=== PATIENT | female | born 1950 ===

== ENCOUNTER 2020-09-17 09:53 | Outpatient (REF) | payer MEDICARE, SELFPAY ==
[2020-09-17 10:50] LABS: MANUAL DIFF FLAG NO
[2020-09-17 10:55] LABS: Basophils Percent Auto 0.4 % (0-2); Eosinophils Absolute Auto 0.2 X10*3/uL (0.0-0.4); Eosinophils Percent Auto 3.3 % (0-4); Hematocrit 42.4 % (37-47); Hemoglobin 13.7 g/dl (12.0-16.0); Imm Gran Abs Auto 0.01 X10*3/uL (0.00-0.03); Imm Gran Pct Auto 0.2 % (0.0-0.4); Lymphocytes Absolute Auto 2.2 X10*3/uL (1.2-4.9); Lymphocytes Percent Auto 37.8 % (20-40); Mean Corpuscular HGB Conc 32.3 g/dl (31.0-35.0); Mean Corpuscular Volume 95.9 fL (80-98); Mean Platelet Volume 11.6 fL (9.4-12.3); Monocytes Absolute Auto 0.6 X10*3/uL (0.1-1.2); Monocytes Percent Auto 10.5 % (2-11); Neutrophils Absolute Auto 2.7 X10*3/uL (2.0-8.3); Neutrophils Percent Auto 47.8 % (45-73); Platelet Count 252 X10*3/uL (160-400); Red Blood Count 4.42 X10*6/uL (4.20-5.50); Red Cell Distribution Width 12.5 % (11.0-16.0); White Blood Count 5.7 X10*3/uL (4.8-10.8)
[2020-09-17 11:22] LABS: Anion Gap 11 (12-20); Blood Urea Nitrogen 24 mg/dL (9-16); Calcium 10.2 mg/dL (8.4-10.2); Carbon Dioxide 31 mmol/L (22-29); Chloride 102 mmol/L (96-108); Cholesterol 233 mg/dL; Estimated Glomerular Filt Rate > 60; Glucose Fasting 103 mg/dL (60-99); HDL Cholesterol 65 mg/dL; LDL Cholesterol Calculated 150 mg/dl; Sodium 140 mmol/L (135-145); Triglycerides 92 mg/dL
== END 2020-09-17 09:54 | disposition home or self-care (01) ==
LOC: HO.LAB 09:53
PROVIDERS: PCP Nurse Practitioner Family; Visit Provider Nurse Practitioner Family
DX: I10 Essential (primary) hypertension (principal); Z12.31 Encounter for screening mammogram for malignant neoplasm of breast
CPT/HCPCS: 36415; 80048; 80061; 85025

== ENCOUNTER 2020-12-05 12:20 | Outpatient (REF) | payer MEDICARE, MEDICAID, SELFPAY ==
--- NOTE | ~2020-12-05 | MM_ITS ---
EXAMINATION: MM SCREENING DIGITAL BREAST TOMOSYNTHESIS, BILATERAL CLINICAL INFORMATION: Screening. Asymptomatic. Prior outside mammography from [place] at unknown facility and unavailable. No family history breast cancer. The lifetime risk of breast cancer based on the Tyrer-Cuzick Model is 3%. COMPARISON: None. TECHNIQUE: Digital breast tomosynthesis is performed in both the craniocaudal and mediolateral oblique views along with computer-aided detection (CAD). Synthesized 2D images are generated from the tomosynthesis. FINDINGS: There are scattered areas of fibroglandular density (ACR BI-RADS breast composition Category b). There is fine fibronodular parenchymal pattern. There is no significant mass or architectural abnormality. No abnormal calcifications. The skin contours are smooth. MM/MM tomosynthesis screening BI IMPRESSION: No mammographic evidence of malignancy. ASSESSMENT: BI-RADS 1: Negative RECOMMENDATION: Routine annual mammography screening. This patient's information was entered into a reminder system with a target due date for their next mammogram.
== END 2020-12-05 12:21 | disposition home or self-care (01) ==
LOC: HO.MAMMO 12:20
PROVIDERS: Visit Provider Nurse Practitioner Family
DX: Z12.31 Encounter for screening mammogram for malignant neoplasm of breast (principal)
CPT/HCPCS: 77063; 77067

== ENCOUNTER 2022-01-12 13:28 | Outpatient (REF) | payer MEDICARE, MEDICAID, SELFPAY ==
--- NOTE | ~2022-01-12 | MM_ITS ---
EXAMINATION: MM SCREENING DIGITAL BREAST TOMOSYNTHESIS, BILATERAL CLINICAL INFORMATION: Screening. Asymptomatic. The lifetime risk of breast cancer based on the Tyrer-Cuzick Model is 2.2%. COMPARISON: Mammography: December 05, 2020 TECHNIQUE: Digital breast tomosynthesis is performed in both the craniocaudal and mediolateral oblique views along with computer-aided detection (CAD). Synthesized 2D images are generated from the tomosynthesis. FINDINGS: The breasts are heterogeneously dense, which may obscure small masses (ACR BI-RADS breast composition Category c). There are no significant masses, abnormal calcifications, or other abnormalities. MM/MM tomosynthesis screening BI IMPRESSION: There are no significant changes from prior study. ASSESSMENT: BI-RADS 1: Negative RECOMMENDATION: Routine annual mammography screening. This patient's information was entered into a reminder system with a target due date for their next mammogram.
== END 2022-01-12 13:29 | disposition home or self-care (01) ==
LOC: HO.MAMMO 13:28
PROVIDERS: PCP Internal Medicine; Visit Provider Internal Medicine
DX: Z12.31 Encounter for screening mammogram for malignant neoplasm of breast (principal)
CPT/HCPCS: 77063; 77067

== ENCOUNTER 2023-01-18 12:24 | Outpatient (REF) | payer MEDICARE, MEDICAID, SELFPAY ==
--- NOTE | ~2023-01-18 | MM_ITS ---
EXAMINATION: MM SCREENING DIGITAL BREAST TOMOSYNTHESIS, BILATERAL CLINICAL INFORMATION: Screening. Asymptomatic. The lifetime risk of breast cancer based on the Tyrer-Cuzick Model is 1.8%. COMPARISON: Mammography: January 12, 2022 and December 05, 2020 TECHNIQUE: Digital breast tomosynthesis is performed in both the craniocaudal and mediolateral oblique views along with computer-aided detection (CAD). Synthesized 2D images are generated from the tomosynthesis. FINDINGS: The breasts are heterogeneously dense, which may obscure small masses (ACR BI-RADS breast composition Category c). There are no significant masses, abnormal calcifications, or other abnormalities. MM/MM tomosynthesis screening BI IMPRESSION: No significant changes from prior exam. ASSESSMENT: BI-RADS 1: Negative RECOMMENDATION: Routine annual mammography screening. This patient's information was entered into a reminder system with a target due date for their next mammogram.
== END 2023-01-18 12:25 | disposition home or self-care (01) ==
LOC: HO.MAMMO 12:24
PROVIDERS: PCP Internal Medicine; Visit Provider Internal Medicine
DX: Z12.31 Encounter for screening mammogram for malignant neoplasm of breast (principal)
CPT/HCPCS: 77063; 77067

== ENCOUNTER 2023-07-29 08:21 | Outpatient (REF) | payer MEDICARE, MEDICAID, SELFPAY | END 2023-07-29 08:22 | disposition home or self-care (01) | LOC: HO.HHCL 08:21 | PROVIDERS: Visit Provider Internal Medicine | DX: E78.00 Pure hypercholesterolemia, unspecified (principal) | CPT/HCPCS: 36415; 80061; 80076 ==

== ENCOUNTER 2023-08-11 18:10 | Outpatient (REF) | payer MEDICARE, MEDICAID, SELFPAY ==
[2023-08-12 08:56] LABS: CT PCR NOT DETECTED (Not Detect.); NG PCR NOT DETECTED (Not Detect.)
[2023-08-12 11:14] LABS: BV Int Neg Control Negative (Negative); BV Int Pos Control Positive (Positive)
== END 2023-08-11 18:11 | disposition home or self-care (01) ==
LOC: HO.HHCLNP 18:10
PROVIDERS: Visit Provider Family Medicine
DX: N39.0 Urinary tract infection, site not specified (principal); Z20.2 Contact with and (suspected) exposure to infections with a predominantly sexual mode of transmission
CPT/HCPCS: 0353U; 87086; 87088; 87186; 87480; 87510; 87660

== ENCOUNTER 2023-10-11 17:47 | Outpatient (REF) | payer MEDICARE, MEDICAID, SELFPAY ==
[2023-10-12 21:52] LABS: C. trachomatis RNA TMA NOT DETECTED (NOT DETECTED); N. gonorrhoeae RNA TMA NOT DETECTED (NOT DETECTED)
== END 2023-10-11 17:48 | disposition home or self-care (01) ==
LOC: HO.HHCLNP 17:47
PROVIDERS: Visit Provider Emergency Medicine
DX: R30.0 Dysuria (principal)
CPT/HCPCS: 36415; 81513; 87086; 87491; 87591

== ENCOUNTER 2024-02-20 09:26 | Outpatient (REF) | payer OTHER, SELFPAY | END 2024-02-20 09:27 | disposition home or self-care (01) | LOC: HO.MAMMO 09:26 | PROVIDERS: PCP Internal Medicine; Visit Provider Internal Medicine | DX: Z12.31 Encounter for screening mammogram for malignant neoplasm of breast (principal) | CPT/HCPCS: 77063; 77067 ==

== ENCOUNTER → 2024-02-20 10:45 | Outpatient (BNV) | payer OTHER, SELFPAY | PROVIDERS: PCP Internal Medicine; Visit Provider Radiology Diagnostic Radiology | DX: Z12.31 Encounter for screening mammogram for malignant neoplasm of breast (principal) | CPT/HCPCS: 77063; 77067 ==

== ENCOUNTER 2024-05-09 09:55 | Outpatient (REF) | payer OTHER, SELFPAY ==
[2024-05-09 12:24] LABS: Cholesterol 222 mg/dL (<200); HDL Cholesterol 65 mg/dL (>40); LDL Cholesterol Calculated 139 mg/dL (<100); Triglycerides 93 mg/dL (<150); Vitamin D 25-OH Total 45.7 ng/mL (>30)
[2024-05-09 13:49] LABS: Reflex LDLD? No
== END 2024-05-09 09:56 | disposition home or self-care (01) ==
LOC: HO.HHCL 09:55
PROVIDERS: Visit Provider Internal Medicine
DX: E78.00 Pure hypercholesterolemia, unspecified (principal)
CPT/HCPCS: 36415; 80061; 82306

== ENCOUNTER 2024-06-11 09:02 | Emergency (ER) | payer OTHER, SELFPAY ==
--- NOTE | ~2024-06-11 | XR_ITS ---
EXAMINATION: XR RIGHT KNEE, PELVIS AND RIGHT HIP CLINICAL INFORMATION: Fall, pain right knee and hip. COMPARISON: None available. TECHNIQUE: AP view of the pelvis, 2 views right hip, 4 views right knee. FINDINGS: AP Pelvis and Right Hip: Degenerative changes in the imaged lower lumbar spine. Multiple rounded pelvic calcifications are likely vascular. Diffuse demineralization. Moderate degenerative changes in the right hip with joint space narrowing and hypertrophic change. Moderate degenerative changes on single AP view of the left hip. Right Knee: Diffuse demineralization. Trace joint effusion. Mild narrowing of the medial compartment with mild marginal osteophytes. XR/XR hip RT min 2V IMPRESSION: 1. Moderate degenerative changes in the right hip. 2. Mild degenerative changes right knee. 3. Diffuse demineralization. Additional imaging with CT scan or MRI should be considered if there is concern for fracture or other underlying pathology for this patient with history of trauma. This study was presented today June 11, 2024 for interpretation. Stat results provided at this time as requested by referring provider.
--- NOTE | ~2024-06-11 | XR_ITS ---
EXAMINATION: XR RIGHT KNEE, PELVIS AND RIGHT HIP CLINICAL INFORMATION: Fall, pain right knee and hip. COMPARISON: None available. TECHNIQUE: AP view of the pelvis, 2 views right hip, 4 views right knee. FINDINGS: AP Pelvis and Right Hip: Degenerative changes in the imaged lower lumbar spine. Multiple rounded pelvic calcifications are likely vascular. Diffuse demineralization. Moderate degenerative changes in the right hip with joint space narrowing and hypertrophic change. Moderate degenerative changes on single AP view of the left hip. Right Knee: Diffuse demineralization. Trace joint effusion. Mild narrowing of the medial compartment with mild marginal osteophytes. XR/XR knee RT 4V IMPRESSION: 1. Moderate degenerative changes in the right hip. 2. Mild degenerative changes right knee. 3. Diffuse demineralization. Additional imaging with CT scan or MRI should be considered if there is concern for fracture or other underlying pathology for this patient with history of trauma. This study was presented today June 11, 2024 for interpretation. Stat results provided at this time as requested by referring provider.
[2024-06-11 09:12] VITALS: BP 172/67; PULSE 89; RESP 16; TEMP 36.9; O2SAT 98; BMI 21.6
--- NOTE | 2024-06-11 09:16 | ECG_ITS ---
Test Reason : DIZZINESS Blood Pressure : / mmHG Vent. Rate : 094 BPM Atrial Rate : 094 BPM P-R Int : 144 ms QRS Dur : 076 ms QT Int : 336 ms P-R-T Axes : 046 030 060 degrees QTc Int : 420 ms Normal sinus rhythm Normal ECG No previous ECGs available Referred By: Generic ED Physician Electronically Signed By:AJAY WILBURN
[2024-06-11 09:34] LABS: MANUAL DIFF FLAG NO
[2024-06-11 09:35] LABS: Basophils Percent Auto 0.4 % (0-2); Eosinophils Absolute Auto 0.1 X10*3/uL (0.0-0.4); Hematocrit 41.4 % (37.0-47.0); Imm Gran Abs Auto 0.02 X10*3/uL (0.00-0.03); Imm Gran Pct Auto 0.3 % (0.0-0.4); Lymphocytes Absolute Auto 1.7 X10*3/uL (1.2-4.9); Mean Corpuscular HGB Conc 33.8 g/dl (31.0-35.0); Mean Corpuscular Volume 94.7 fL (80.0-98.0); Mean Platelet Volume 10.6 fL (9.4-12.3); Monocytes Absolute Auto 0.7 X10*3/uL (0.1-1.2); Monocytes Percent Auto 10.5 % (2-11); Neutrophils Absolute Auto 4.2 x10*3/uL (2.0-8.3); Neutrophils Percent Auto 62.8 % (45-73); Platelet Count 235 X10*3/uL (160-400); Red Blood Count 4.37 X10*6/uL (4.20-5.50); Red Cell Distribution Width 12.8 % (11.0-16.0); White Blood Count 6.7 X10*3/uL (4.8-10.8)
[2024-06-11 09:51] LABS: Anion Gap 11 (12-20); Blood Urea Nitrogen 20 mg/dL (9-16); Calcium 10.2 mg/dL (8.4-10.2); Carbon Dioxide 27 mmol/L (22-29); Chloride 108 mmol/L (96-108); Creatinine Clr Calc Pharmacy 40.4; Estimated Glomerular Filt Rate 56; Glucose Random 152 mg/dL (60-115); Potassium 3.6 mmol/L (3.3-5.1); Sodium 142 mmol/L (135-145)
[2024-06-11 11:50] VITALS: BP 169/73; PULSE 78; RESP 18; TEMP 36.7; O2SAT 100
[2024-06-11 11:55] LABS: Appearance Urine Cloudy; Color Urine Yellow; Glucose Urine UA Negative (Negative); Leukocyte Esterase Urine Large (3+) (Negative); Nitrite Urine Negative (Negative); PH 6.5 (5.0-9.0); Specific Gravity - Urine 1.015 (1.005-1.025); UMIC TRIGGER UACC YES; Urine Blood Trace (Negative); Urine Ketones Negative (Negative); Urine Protein Negative (Neg-Trace)
[2024-06-11 12:00] VITALS: BP 170/74; PULSE 80; RESP 18; TEMP 36.8; O2SAT 97
[2024-06-11 12:04] LABS: Bacteria Urine 1+ (None Seen); Hyaline Casts Urine 0-2 /LPF (0-2); RBC Urine 0-2 /HPF (0-2); UACC Culture Trigger YES; WBC Urine 21-50 /HPF (0-5)
--- NOTE | 2024-06-11 12:12 | ED.FALL ---
HPI - Fall General Chief Complaint: Fall Stated Complaint: R side pain Time Seen by Provider: 06/11/24 11:15 Source: patient, family (daughter) and wet pour supervisor Mode of arrival: ambulatory Limitations: language barrier History of Present Illness ED Provider: saul GARNER Narrative: Patient is a 74-year-old [place]er speaking female with history of HTN, high cholesterol, depression presenting to the emergency department with complaint of right hip pain radiating to right knee and proximal lower leg after a fall at home last night. Patient's daughter states that she was visiting the patient last night and patient reported feeling hot, so was going to take a shower to cool off. Daughter then went home. This morning, patient reported to her daughter that she slipped getting into the shower last night and fell. Patient and daughter report history of dizziness/feeling unsteady. Patient denies head strike or loss of consciousness. She is not anticoagulated. She denies current headache, neck or back pain. Denies blurred vision, double vision or other visual changes. Denies hematuria. Denies chest pain, palpitations, or dyspnea at the time of fall. Has been able to ambulate since. MD complaint: fall Onset (ago): hour(s) Fall from: standing Fall witnessed: no Place fall occurred: home Loss of consciousness: none Prolonged down time: no Symptoms prior to fall: dizziness Context: tripped/slipped Location of injury: pelvis Quality: aching Related Data Previous Rx's ?Medication ?Instructions ?Recorded gabapentin 300 mg capsule 300 mg PO BEDTIME 30 days #30 caps 11/20/20 lisinopril 20 mg tablet 20 mg PO DAILY 3 months #90 tabs 11/20/20 omeprazole 20 mg capsule,delayed 20 mg PO DAILY #90 caps 11/20/20 release simvastatin 20 mg tablet 20 mg PO BEDTIME 3 months #90 tabs 11/20/20 blood pressure test kit-large #1 ea 11/27/20 ([facility] Blood Pressure Monitor kit) cefuroxime axetil 250 mg tablet 250 mg PO BID #14 tabs 06/11/24 lidocaine 5 % topical patch 1 patch topical DAILY #15 ea 06/11/24 tramadol 50 mg tablet 50 mg PO Q8H PRN severe pain 06/11/24 (scale score 7-10) #9 tabs Allergies Allergy/AdvReac Type Severity Reaction Status Date / Time No Known Allergies Allergy Verified 06/11/24 09:16 Review of Systems Review of Systems: As per HPI. Yes all other systems are reviewed and are negative Constitutional: Constitutional: Reports as per HPI [facility] Past Medical History Medical History (Updated 06/11/24 @ 13:22 by Antonieta Ellison NP) High cholesterol Breast cancer screening by mammogram Depression High blood cholesterol Hypertension Surgical History (Updated 11/20/20 @ 10:16 by BASSAM Ybarra) No history of previous surgery Family History Family History (Updated 11/20/20 @ 10:16 by BASSAM Ybarra) Mother No problems noted. Father No problems noted. Social History Social History (Updated 11/20/20 @ 10:16 by BASSAM Ybarra) Alcohol intake: never Advance Directives: No Advance Directives Information Provided: Yes Physical Exam Vital Signs: Vital Signs: Last Vital Signs Temp 98.3 F 06/11/24 12:00 Pulse 84 06/11/24 12:44 Resp 18 06/11/24 12:00 BP 170/82 H 06/11/24 12:44 Pulse Ox 97 06/11/24 12:00 O2 Del Method Room Air 06/11/24 12:00 BMI result Body Mass Index 21.6 Vital signs have been reviewed and appear to be correct. Blood pressure elevated. Heart rate normal. Respiratory rate normal. Temperature normal. Oxygen saturation normal. Const: General: cooperative, healthy appearing and no acute distress Orientation/consciousness: oriented to person, oriented to place, oriented to time and patient oriented x3 Limitations: no limitations HEENT: Head: Yes No palpable skull fracture present, Yes normocephalic, Yes atraumatic, No raccoon eyes and No periorbital ecchymosis Ears: external ears normal, TM's normal bilaterally and EAC's normal General nose exam: Normal external nose present Face and sinus: Yes face symmetric Mouth: oropharynx normal and moist mucous membranes Throat: Yes uvula midline Eyes: Pupils: Equal, round and reactive pupils present EOM: EOMs intact bilaterally and No Nystagmus present Neck: Neck: Yes normal visual inspection, Yes no meningeal signs and Yes supple Chest: Chest palpation & inspection: normal inspection of the chest and normal palpation of entire chest wall Resp: Effort & Inspection: normal respiratory effort and able to speak in complete sentences Auscultation: clear to auscultation bilaterally Cardio: Rate: regular rate Rhythm: regular rhythm Heart sounds: S1 normal heart sound present and S2 normal heart sound present GI: Palpation (GI): Soft to palpation and nontender Auscultation: normoactive bowel sounds : General: Yes no CVA tenderness Back/Spine/Pelvis: Back: no CVA tenderness Cervical Spine: normal cervical lordosis, cervical ROM normal, No cervical muscular tenderness, No Cervical spine tenderness and No step off deformity Thoracic/Lumbar Spine: thoracic and lumbar spine normal to inspection, thoraco-lumbar ROM normal, No thoracic spinal tenderness and No lumbar spinal tenderness Pelvis: no pain with anterior-posterior compression and no pain with lateral compression Skin: General skin exam: elasticity normal and turgor normal Neuro: General: oriented to person, oriented to place, oriented to time, patient oriented x3, tone normal, moves all extremities, Normal light touch and pain sensation, no meningeal signs, no focal motor deficits, CN's II-XI intact bilaterally and deep tendon reflexes 2+ bilaterally Cranial nerves: Yes Equal, round and reactive pupils present and No Nystagmus present Cognition (Neuro): normal cognition Motor exam (neuro): 5/5 motor strength present throughout, Pronator motor function not present, no tremor noted, no asterixis, Motor fasciculations not present, Normal motor muscle tone present throughout and Motor abnormalities not present Extrem: General: Yes full ROM, Yes no pedal edema and Yes no calf tenderness Right lower extremity: hip/thigh Details: tenderness Location: of the hip Location: laterally and normal ROM, knee Details: tenderness Location: of the distal upper leg Details: anteriorly, normal ROM and knee ligament exam normal, lower leg Details: normal to inspection; no tenderness, ankle Details: normal to inspection; no tenderness and foot Details: normal capillary refill, normal to inspection and vascular exam Details: dorsalis pedis pulse present and posterior tibial pulse present Psych: Mental Status: mental status grossly normal Affect: normal affect Thought process: Normal thought process present Medical Decision Making Medical Decision Making MDM Narrative: Patient is a 74-year-old [place] speaking female with history of HTN, high cholesterol, depression presenting to the emergency department with complaint of right hip pain radiating to right knee and proximal lower leg after a fall at home last night. On exam patient is awake, A+Ox3, BP elevated, VS otherwise WNL, afebrile, normal neurological exam without focal deficits, physical exam findings as above. Given reported symptoms and physical exam findings, initial differential includes right hip contusion versus fracture, right knee contusion versus fracture, anemia, electrolyte abnormality, dehydration, orthostatic intolerance, cardiac arrhythmia. Labs unremarkable. X-rays or right hip and knee notable for moderate degenerative changes but no acute fractures. My interpretation is in agreement with the radiologist's interpretation. Urinalysis notable for 3+ leukocytes, 21-50 WBCs, 11-20 epithelials. Possibly contamination, but given patient's report of feeling unsteady which lead to her fall, will treat for UTI at this time. Will prescribe a few Tramadol for severe pain as daughter states patient will be staying with her for the next few days. Discussed with patient and daughter that she should not take the Tramadol if she is home alone as it can increase her risk for falls. Results discussed with patient and all questions answered. Instructed patient to follow-up with PCP. Return precautions discussed at bedside. Patient verbalized understanding of and agreement with plan. Assessment, results, return precautions and plan discussed with in-person furnace checker at bedside. Differential Diagnosis Differential Diagnoses: The differential diagnosis associated with the presentation includes As per [facility] Admission/Observation Consideration of admission/observation: Escalation of care including admission/observation considered Patient would have been admitted to the hospital had their work up had any findings where hospital admission was appropriate and their clinical presentation warranted hospital admission. Lab Data [facility] Lab Attestation statement: I reviewed the patient's lab results. As per [facility] 06/11/24 09:27 06/11/24 09:27 Labs: Lab Results 06/11/24 06/11/24 Range/Units 09:27 11:48 WBC 6.7 (4.8-10.8) X10*3/uL RBC 4.37 (4.20-5.50) X10*6/uL Hgb 14.0 (12.0-16.0) g/dl Hct 41.4 (37.0-47.0) % MCV 94.7 (80.0-98.0) fL MCH 32.0 (27.0-33.0) pg MCHC 33.8 (31.0-35.0) g/dl RDW 12.8 (11.0-16.0) % Plt Count 235 (160-400) X10*3/uL MPV 10.6 (9.4-12.3) fL Immature Gran % (Auto) 0.3 (0.0-0.4) % Neut % (Auto) 62.8 (45-73) % Lymph % (Auto) 25.0 (20-40) % Iz[place] % (Auto) 10.5 (2-11) % Eos % (Auto) 1.0 (0-4) % Baso % (Auto) 0.4 (0-2) % Lymph # (Auto) 1.7 (1.2-4.9) X10*3/uL [place] # (Auto) 0.7 (0.1-1.2) X10*3/uL Eos # (Auto) 0.1 (0.0-0.4) X10*3/uL Baso # (Auto) 0.0 (0.0-0.2) X10*3/uL Abs Immat Gran (auto) 0.02 (0.00-0.03) X10*3/uL Absolute Neuts (auto) 4.2 (2.0-8.3) x10*3/uL Absolute Nucleated RBC 0.000 (0.0-0.012) X10*3/uL Nucleated RBC % (auto) 0.0 (0.0-0.2) /100WBC Sodium 142 (135-145) mmol/L Potassium 3.6 (3.3-5.1) mmol/L Chloride 108 (96-108) mmol/L Carbon Dioxide 27 (22-29) mmol/L Anion Gap 11 L (12-20) BUN 20 H (9-16) mg/dL Creatinine 0.98 (0.5-1.4) mg/dL Estim Creat Clear Calc 40.4 Estimated GFR 56 Random Glucose 152 H (60-115) mg/dL Calcium 10.2 (8.4-10.2) mg/dL Urine Color Yellow Urine Appearance Cloudy Urine pH 6.5 (5.0-9.0) Ur Specific [place] 1.015 (1.005-1.025) Urine Protein Negative (Neg-Trace) mg/dL Urine Glucose (UA) Negative (Negative) mg/dL Urine Ketones Negative (Negative) mg/dL Urine Blood Trace H (Negative) Urine Nitrite Negative (Negative) Ur Leukocyte Esterase Large (3+) H (Negative) Urine RBC 0-2 (0-2) /HPF Urine WBC 21-50 H (0-5) /HPF Ur Squamous Epith Cells 11-20 (0-2) /HPF Urine Bacteria 1+ (None Seen) Hyaline Casts 0-2 (0-2) /LPF Independent Interpretation I performed an independent interpretation of an: Plain X-Ray Interpretation: X-rays or right hip and knee notable for moderate degenerative changes but no acute fractures. Radiology Impression Discussion of test interpretation with radiology: I have reviewed the radiologist's reading. Radiologist Impression: XR/XR hip RT min 2V IMPRESSION: 1. Moderate degenerative changes in the right hip. 2. Mild degenerative changes right knee. 3. Diffuse demineralization. Additional imaging with CT scan or MRI should be considered if there is concern for fracture or other underlying pathology for this patient with history of trauma. Independent Historian Clinical information obtained from an independent historian. History obtained from or confirmed by: Other (daughter) External Record Review External record reviewed: Inpatient record, Office record and Outpatient record Prescription Management I considered prescription management with: Antibiotic Discharge Plan Discharge Clinical Impression: Contusion of hip, right, Fall, Urinary tract infection Patient Disposition: Home, Self-Care Instructions: Urinary Tract Infection in Women (DC), Contusion in Adults (ED), Fall Prevention (ED), Hip Contusion (ED) Additional Instructions: You were evaluated in the emergency department today for injuries sustained after a fall. Your x-rays did not show evidence of any acute fractures. Your urinalysis showed evidence of infection and you are being treated with antibiotics. Please complete the full course as prescribed. You are being prescribed topical lidocaine patches which you can wear for up to 12 hours in a 24 hour period. Do not apply heat directly over the patches. We recommend that you take 650mg of Tylenol or 600mg ibuprofen every 6 hours as needed for pain. You are being prescribed Tramadol for severe pain, do not take this if you are home alone, as it can increase your risk for falls. Follow up with your primary care provider. Return to the emergency department with new or worsening symptoms. Prescriptions: New lidocaine 5 % adhesive patch,medicated 1 patch topical DAILY Qty: 15 0RF Rx Instructions: leave on most painful area for up to 12 hrs cefuroxime axetil 250 mg tablet 250 mg PO BID Qty: 14 0RF tramadol 50 mg tablet 50 mg PO Q8H PRN (Reason: severe pain (scale score 7-10)) Qty: 9 0RF No Action omeprazole 20 mg capsule,delayed release(DR/EC) 20 mg PO DAILY Qty: 90 0RF (DME) blood pressure test kit-large [[facility] Blood Pressure Monitr] Kit See Rx Instructions .ROUTE .MEDSUPPLY Qty: 1 0RF Rx Instructions: As directed gabapentin 300 mg capsule 300 mg PO BEDTIME 30 Days Qty: 30 0RF lisinopril 20 mg tablet 20 mg PO DAILY 90 Days Qty: 90 0RF simvastatin 20 mg tablet 20 mg PO BEDTIME 90 Days Qty: 90 0RF Print Language: [place]
[2024-06-11 12:44] VITALS: BP 156/78; BP 170/76; BP 170/82; PULSE 78; PULSE 84; PULSE 85
[2024-06-11] MEDS: traMADoL HCL 50 MG TABLET PO (14:44)
[2024-06-11 14:48] VITALS: BP 156/76; PULSE 88; RESP 18; TEMP 36.8; O2SAT 98
== END 2024-06-11 14:49 | disposition home or self-care (01) ==
PROVIDERS: Emergency Provider Emergency Medicine; PCP Internal Medicine
DX: S70.01XA Contusion of right hip, initial encounter (principal); W18.2XXA Fall in (into) shower or empty bathtub, initial encounter; N39.0 Urinary tract infection, site not specified; I10 Essential (primary) hypertension; E78.00 Pure hypercholesterolemia, unspecified; Y93.E1 Activity, personal bathing and showering; Y92.012 Bathroom of single-family (private) house as the place of occurrence of the external cause; Y99.9 Unspecified external cause status
CPT/HCPCS: 36415; 73502; 73564; 80048; 81001; 85025; 87086; 87147; 93005; 99283; 99285

== ENCOUNTER 2025-02-19 08:41 | Outpatient (REF) | payer OTHER, SELFPAY ==
--- OUTSIDE RECORDS SUMMARY | 2025-02-19 09:06 | XMS_ITS | Encounter Summary ---
Author Organization [employer] Address [address] [place] [address] Care Team Providers Care Optometry Professor Name Role Phone Kourtney Cano MD Primary Care Provider + Encounter Details Date Type Department Care Team (Latest Contact Info) Description 02/05/[address] [facility] CONVERSIONS Dental, Provider, DDS Social History Tobacco Use Types Packs/Day Years Used Date Smoking Tobacco: Never Assessed Comments Unknown Sex and Gender Information Value Date Recorded Sex Assigned at Female 08/23/2022 10:37 AM EDT Legal Sex Female 10:37 AM EDT Gender Identity Female 08/23/2022 10:37 AM EDT Sexual Orientation Straight 08/23/2022 10 :37 AM EDT documented as of this encounter Plan of Treatment Upcoming Encounters Date Type Department Care Team (Late st Contact Info) Description 04/10/2025 9:00 AM EDT Office Visit [facility] MEDICINE [address] [place] [address] Kourtney Cano MD [address] [place] [address] documented as of this encounter Visit Diagnoses Not on filedocumented in this encounter Care Teams Optometry Professor Relationship Specialty Start Date End Date Kourtney Cano MD [address] [place], [place] [phone] PCP - General Family Medicine 02/11/21 documented as of this encounter
--- OUTSIDE RECORDS SUMMARY | 2025-02-19 09:06 | XMS_ITS | Encounter Summary ---
Author Organization [employer] Address [address] [place] [address] Care Team Providers Care Pot Builder Name Role Phone Kourtney Cano MD Primary Care Provider + Reason for Visit * Reason Onset Date Comments Durable Medical Equipment 02/12/2025 Home C are Delivered Form: Incontinence Supplies Encounter Details Date Type Department Care Team ([facility] Contact Info) Description 02/12/2025 Telephone [facility] MEDICINE [address] [place], [place] [phone] Kourtney Cano MD [address] [place], [place] [phone] Durable Medical Equipment (Home Care Delivered Form: Incontinence Supplies) Social History Tobacco Use Types Packs/Day Years Used Date Smoking Tobacco: Never Smokeless Tobacco: Never Alcohol Use Standard Drinks/Week Comments Never 0 (1 standard drink = 0.6 oz pur e alcohol) PHQ-2 Answer Date Recorded Patient Health Questionnaire-2 Score 0 12/16/2022 Housing Stability Answer Date Recorded What is your housing situation today? I have margarita ramirez 01/27/[address] you li ve. Do you have problems with any of the following? None of the above 01/27/2024 Food Insecurity Answer Date Recorded Within the past 12 months, y ou worried that your food would run out before you got money to buy more: Never True 01/27/2024 Within the past 12 months,th e food you bought just didn't last and you didn't have enough money to get more: Never True 02/2024 Transportation Answer Date Recorded In the past 12 months, has l ack of transportation kept you from medical appts, meetings, work or from getting things needed for daily living? No 01/27/2024 Utilities Answer Date Recorded In the past 12 months, has t he electric, gas, oil or water company threatened to shut off services in your home? No 01/27/2024 Depression Answer Date Recorded Patient Health Questionnaire-2 Score 0 01/27/2024 Comments No Sex and Gender Information Value Date Recorded Sex Assigned at Female 08/23/2022 10:37 AM EDT Legal Sex Female 10:37 AM EDT Gender Identity Female 08/23/2022 10:37 AM EDT Sexual Orientation Straight 08/23/2022 10 :37 AM EDT documented as of this encounter Miscellaneous Notes * Telephone Encounter - Bhargavi Blanchard - 02/15/2025 3:58 PM EDT Confirmation of order for incontinence supplies signed and faxed to [facility] . Confirmation received and sent to scan. If patient calls to check status on above, please advise them to contact [facility] at [phone]. * Telephone Encounter - Bhargavi Blanchard - 02/12/2025 11:28 AM EDT General prescription form for incontinence supplies from [facility] placed on PCP desk for signature. documented in this encounter Plan of Treatment Upcoming Encounters Date Type Department Care Team (Late st Contact Info) Description 04/10/2025 9:00 AM EDT Office Visit [facility] MEDICINE [address] [place] [address] Kourtney Cano MD [address] [place] [address] documented as of this encounter Visit Diagnoses Not on filedocumented in this encounter Care Teams Pot Builder Relationship Specialty Start Date End Date Kourtney Cano MD [address] [place] [phone] PCP - General Family Medicine 02/11/21 documented as of this encounter
--- OUTSIDE RECORDS SUMMARY | 2025-02-19 09:06 | XMS_ITS | Clinical Summary ---
Author Organization [employer] Address [address] [facility] 7[address] [place] [address] Care Team Providers Care Jig Borer Name Role Phone Kourtney Cano MD Primary Care Provider + Allergies No known active allergies Medications acetaminophen (Tylenol) 500 MG tablet Take 1 tablet (500 mg) by mouth every 8 (eight) hours if needed for mild pain. 270 tablet 01/02/20 25 026 Active ammonium lactate (Amlactin) 12 % creamIndications:Overflo w incontinence of urine USO MARIO INDICADO EN-PIEL RESECA NEEDED 385 g 01/02/20 25 Active calcium carbonate EX (Tums Smoothies) 750 MG chewable tabletIndications:Gastro esophageal reflux disease, unspecified whether esophagitis present 1 tab po tid ac meals prn abd pain 90 tablet 11 01/02/20 25 Active ezetimibe (Zetia) 10 MG tablet Take 1 tablet (10 mg) by mouth in the morning. 90 tablet 1 01/02/20 25 Active lisinopril 20 MG tabletIndications:Benign hypertension TAKE 1 TABLET BY MOUTH EVERY DAY 90 tablet 1 01/02/20 25 Active omeprazole (PriLOSEC) [address] capsuleIndications:Gastr oesophageal reflux disease, unspecified whether esophagitis present TAKE 1 CAPSULE BY MOUTH DAILY BEFORE A MEAL 90 capsule 1 01/02/20 25 Active rosuvastatin (Crestor) 40 MG tabletIndications:Pure hypercholesterolemia TAKE 1 TABLET BY MOUTH DAILY 90 tablet 1 01/02/20 25 Active Active Problems Problem Noted Date Diagnosed Date Dental plaque 12/13/2024 Bone loss of mandible 12/13/2024 Primary osteoarthritis of right knee 09/03/2024 Assessment & Plan (12/05/2024 9:08 AM EST): Had a recent fall last month while in the shower, shower seat was prescribed. I gave her information to schedule PT appointment, she will continue Tylenol as needed I advised her to contact a puncture clinic. Assessment & Plan (09/03/2024 9:52 AM EST): Worsened sp recent fall Continue Tylenol prn, can call back prn Toradaol injection. Refer to PT Advised to use cane for ambulation and I will also rx a shower chair since hers broke. Hyperglycemia 09/03/2024 Assessment & Plan (09/03/2024 9:52 AM EST): Random, on the back drop of UTI I have discussed with patient regarding increasing physicial activity and decrease calorie intake Check FBS and A1c prior to next appt. Primary osteoarthritis of right hip 09/03/2024 Screening mammogram for breast cancer 01/27/2024 Assessment & Plan (01/27/2024 9:25 AM EDT): Reportedly has an appointment next wk At high risk for cardiovascular disease 08/02/20 23 Vertigo 12/16/2022 Assessment & Plan (12/16/2022 1:33 PM EST): Most likely BPV. Use Meclazine PRN FU next appointment and consider vestibular therapy. Amnesia 12/14/2022 Bacteriuria 12/14/2022 Benign hypertension 12/14/2022 Assessment & Plan (12/05/2024 9:07 AM EST): BP is at goal Controlled. Continue lisinopril 20mg I reminded her to check labs prior to next appt Counseled re low salt diet/increase moderate physical activity. Check home BP BIW and prn CP/[place] Non smoking patient. F/u in 4-5 months Assessment & Plan (09/03/2024 9:53 AM EST): BP is at goal Controlled. Compliant w/meds Continue lisinopril same dose Check labs prior to next appt Counseled re low salt diet/increase moderate physical activity. Check home BP BIW and prn CP/[place] Non smoking patient. Agreed to Influenza + Covyaneli IZ F/u in 4-5 months Assessment & Plan (05/01/2024 10:17 AM EDT): BP is at goal Controlled. Compliant w/meds Continue lisinopril same dose Counseled re low salt diet/increase moderate physical activity. Check home BP BIW and prn CP/[place] Non smoking patient. F/u in 4-5 months Assessment & Plan (01/27/2024 9:26 AM EDT): Controlled. Compliant w/meds Continue lisinopril 20 mg Counseled re low salt diet/increase moderate physical activity. Check home BP BIW and prn CP/[place] Non smoking patient. FU in 3 months This pt agreed to have PCV 20, advised to have RSV at closest pharmacy. She will bring updated Covid IZ records Assessment & Plan (07/28/2023 10:20 AM EDT): Fairly controlled. Compliant w/meds. R/u whitecoat HTN Continue lisinopril 20 mg Counseled re low salt diet/increase moderate physical activity. Cont check home BP BIW and prn CP/[place]/NOBLES, call if BP is above 145/190 Non smoking patient. Assessment & Plan (01/28/2023 10:56 AM EDT): Controlled. Compliant w/meds. Labs wnl Continue lisinopril 20mg Counseled re low salt diet/increase moderate physical activity. Check home BP BIW and prn CP/[place]/NOBLES Non smoking patient. FU in 6m Assessment & Plan (12/16/2022 1:31 PM EST): Controlled. Compliant w/meds Continue lisinopril 20 mg and order labs Counseled re low salt diet/increase moderate physical activity. Check home BP BIW and prn CP/[place]/NOBLES Non smoking patient. FU with me in 4-6 weeks Cerebral microvascular disease 12/14/2022 Assessment & Plan (07/28/2023 10:20 AM EDT): Pt has mild mental deficients, disoriented at times Daughter helps her with ADLs and medical pinky Counseled on HTN and LDL goal of 70 Cont aspirin Assessment & Plan (12/16/2022 1:32 PM EST): She has positive CT scan 2 years ago. Aspirin 81 mg daily. Counseled regarding tight control of HTN, LDL goal is 70. order labs and FU with me in 6 weeks. pt needs and reminders and some assistance with ADLs. Gastroesophageal reflux disease 12/14/2022 Assessment & Plan (07/28/2023 10:22 AM EDT): Use Tums, or omeprazole if Sx don't improve Counseled regarding avoiding omeprazole on a regular basis Assessment & Plan (12/16/2022 1:31 PM EST): Continue Tums PRN. Use Omeprazole for 1 week of symptoms do not resolve. Lightheadedness 12/14/2022 Overflow incontinence of urine 12/14/2022 Assessment & Plan (12/05/2024 9:07 AM EST): No recent UTIs. I gave her information regarding Kegel exercises and will continue to use urinary pads. Assessment & Plan (09/03/2024 9:50 AM EST): Advised re Kegel's exercises, use urinary pads up to 3x/d Re consult prn UTI sxs, will refer to if UTIs occur more frequently. Assessment & Plan (01/27/2024 2:33 PM EDT): Doing well on urinary pads only FU prn Assessment & Plan (01/28/2023 10:57 AM EDT): Continue Kegel's exercise. Continue using urinary pads, will send a rx again to [facility] Assessment & Plan (12/16/2022 1:33 PM EST): Uses urinary pads and occasional diapers. No recent UTIs. Continue same POC. Vascular insufficiency 12/14/2022 Pure hypercholesterolemia 12/14/2022 Assessment & Plan (12/05/2024 9:09 AM EST): Continue Zetia + Crestor 40mg Reminded to get labs done prior to next appt. Recommended moderate amount of exercise and increase consumption of fruit, vegetables, fish and high fiber foods. Should decrease consumption of highly saturated fats or trans fats. Follow-up in 4 mo Assessment & Plan (09/03/2024 9:50 AM EST): Restarted Zetia 2mo ago, continue Crestor 40mg FU lipids and LFTS in 3-4w prior to next appt. Recommended moderate amount of exercise and increase consumption of fruit, vegetables, fish and high fiber foods. Should decrease consumption of highly saturated fats or trans fats. Assessment & Plan (05/01/2024 10:18 AM EDT): - labs need to be done - continue Crestor + Zetia and f/u with me in 4-5 months Assessment & Plan (01/27/2024 9:25 AM EDT): Unclear if she's taking Zetia, continue Crestor Recheck lipid profile, I will jacob back to adjust medication if needed. Recommended moderate amount of exercise and increase consumption of fruit, vegetables, fish and high fiber foods. Should decrease consumption of highly saturated fats or trans fats. FU in 3 months Assessment & Plan (07/28/2023 10:23 AM EDT): On Crestor 40 mg Check lipids and LFTs Fu next visit Assessment & Plan (01/28/2023 10:58 AM EDT): Tolerates Crestor 40m. Check LFTs in 3m Check lipids in 6m. Recommended moderate amount of exercise and increased consumption of fruit, vegetables, fish and high fiber foods. We discussed about avoiding consumption of highly saturated fats or trans fats. FU lipids in 6m Pain in lower limb 12/14/2022 Encounters Date Type Department Care Team Description 02/12/[address] [address] Kourtney Cano MD Durable Medical Equipment (Home Care Delivered Form: Incontinence Supplies) 01/04/[address] [address] Kourtney Cano MD Carleen recall 01/01/[address] [address] Kourtney Cano MD Durable Medical Equipment 01/01/[address] [address] Kourtney Cano MD Overflow incontinence of urine; Gastroesophageal reflux disease, unspecified whether esophagitis present; Benign hypertension; Pure hypercholesterolemia 12/17/[address] [address] Kourtney Cano MD Durable Medical Equipment (Home Care Delivered Form: Incontinence Supplies ) 12/13/2024 11:00 AM EST Office Visit [facility] [address] [place] [id number] [place], Maria Bone loss of mandible (Primary Dx); Dental plaque 12/05/2024 9:00 AM EST Office Visit [address] [address] Kourtney Cano MD Benign hypertension (Primary Dx); Primary osteoarthritis of right knee; Overflow incontinence of urine; Pure hypercholesterolemia 12/05/2024 Travel 12/03/[address] [address] Kourtney Cano MD Chart prep from Last 3 Months Immunizations Name Administration Dates Next Due Influenza High-dose Quadriva lent Preservative Free 07/28/2023 Influenza, High Dose Seasona l, Preservative Free 07/26/2022 Influenza, seasonal, injecta ble, preservative free 09/03/2024 Pfizer Covid-19 Vaccine 12+ 07/24/2021,,11/08/2020 Pneumococcal Conjugate PCV 13 06/12/2021 RSV Bivalent 01/27/2024 Tdap 06/12/2021 Zoster, Recombinant 08/14/2021,06/12/2021 Social History Tobacco Use Types Packs/Day Years Used Date Smoking Tobacco: Never Smokeless Tobacco: Never Tobacco Cessation:Counseling Given: Not Answered Alcohol Use Standard Drinks/Week Comments Never 0 [...] Orientation Straight 08/23/2022 10 :37 AM EDT Last Filed Vital Signs Vital Sign Reading Time Taken Comments Blood Pressure 142/84 12/13/2024 10:44 AM EST Pulse 70 12/05/2024 8:46 AM EST Temperature 35.6 ??C (96 ??F) 12/05/2024 8:46 AM EST Respiratory Rate 12 12/05/2024 8:46 AM EST Oxygen Saturation 100% 12/05/2024 8:46 AM EST Inhaled Oxygen Concentration - - Weight 54.5 kg (120 lb 2 oz) 12/05/2024 8:46 AM EST Height 152.4 cm (5') 12/05/2024 8:46 AM EST Body Mass Index 23.46 12/05/2024 8:46 AM EST Plan of Treatment Upcoming Encounters Date Type Department Care Team (Late st Contact Info) Description 04/10/2025 9:00 AM EDT Office Visit [facility] [address] [place] [address] Kourtney Cano MD [address] [place], [place] [phone] Health Maintenance Due Date Last Done Comments CT Colonography 1950 Colonoscopy 1950 Colorectal Cancer Screening 1950 FIT DNA/Cologuard 1950 FIT 1950 FOBT 1950 Sigmoidoscopy 1950 Alcohol/Substance Use Screening 1963 Hepatitis C Screening 1969 Dental Prophylaxis 08/08/2021 02/05/2021 Pneumococcal Vaccine: 50+ Years (2 of 2 - PPSV23) 06/12/2022 06/12/2021 COVID-19 Vaccine ( season) 2024 07/26/2022, 07/24/2021, 11/29/2020, Additional history exists Depression Screening 01/26/2025 01/27/2024, 01/27/20 SDOH Screening 01/26/2025 01/27/2024 Mammogram 02/19/2025 02/20/2024, 12/23, 01/18/2023, Additional history exists Dental Oral Exam 06/13/2025 12/13/2024, 01/15/2021 Tobacco Screening 12/13/2025 12/13/2024 Dental X-Ray: Bitewings 12/14/2025 12/13/2024, 01/15 Dental X-Ray: Full Mouth 12/14/2027 12/13/2024, 12/23 Lipid Panel 05/09/2029 05/09/2024, 10/0 03/2023, 12/27/2022, Additional history exists DTaP/Tdap/Td Vaccines (2 - Td or Tdap) 06/12/2031 06/12/2021 Zoster Vaccines Completed 08/14/2021, 06/12/2021 RSV Patients and Patients Aged 60 years or older Completed 01/27/2024 Influenza Vaccine Completed 09/03/2024, , 07/26/2022 HIB Vaccines Aged Out No longer eligi ble based on patient's age to complete this topic HPV Vaccines Aged Out No longer eligi ble based on patient's age to complete this topic Hepatitis A Vaccines Aged Out No long er eligible based on patient's age to complete this topic Hepatitis B Vaccines Aged Out No long er eligible based on patient's age to complete this topic IPV Vaccines Aged Out No longer eligi ble based on patient's age to complete this topic Meningococcal Vaccine Aged Out No sonia flakito eligible based on patient's age to complete this topic RSV under 20 months Aged Out No longe r eligible based on patient's age to complete this topic Rotavirus Vaccines Aged Out No longer eligible based on patient's age to complete this topic Procedures Procedure Name Priority Date/Time Associated Diagnosis Comments PERIODIC ORAL EVALUATION - ESTABLISHED PATIENT Routine 12/13/2024 11:00 AM EST ORAL HYGIENE INSTRUCTIONS Routine 12/13/2024 11:00 AM EST Bone loss of mandible Dental plaque INTRAORAL - COMPLETE SERIES OF RADIOGRAPHIC IMAGES Routine 12/13/2024 11:00 AM EST Bone loss of mandible Dental plaque 28 IMPLANT SUPPORTED CROWN - PORCELAIN FUSED TO HIGH ANTUNEZ ALLOYS Routine 12/13/2024 12:00 AM EST 30 IMPLANT SUPPORTED CROWN - PORCELAIN FUSED TO HIGH ANTUNEZ ALLOYS Routine 12/13/2024 12:00 AM EST 29 IMPLANT SUPPORTED CROWN - PORCELAIN FUSED TO HIGH ANTUNEZ ALLOYS Routine 12/13/2024 12:00 AM EST 20 IMPLANT SUPPORTED CROWN - PORCELAIN FUSED TO HIGH ANTUNEZ ALLOYS Routine 12/13/2024 12:00 AM EST 19 IMPLANT SUPPORTED CROWN - PORCELAIN FUSED TO HIGH ANTUNEZ ALLOYS Routine 12/13/2024 12:00 AM EST 14 IMPLANT SUPPORTED CROWN - PORCELAIN FUSED TO HIGH ANTUNEZ ALLOYS Routine 12/13/2024 12:00 AM EST 13 IMPLANT SUPPORTED CROWN - PORCELAIN FUSED TO HIGH ANTUNEZ ALLOYS Routine 12/13/2024 12:00 AM EST 12 IMPLANT SUPPORTED CROWN - PORCELAIN FUSED TO HIGH ANTUNEZ ALLOYS Routine 12/13/2024 12:00 AM EST 5 IMPLANT SUPPORTED CROWN - PORCELAIN FUSED TO HIGH ANTUNEZ ALLOYS Routine 12/13/2024 12:00 AM EST 4 IMPLANT SUPPORTED CROWN - PORCELAIN FUSED TO HIGH ANTUNEZ ALLOYS Routine 12/13/2024 12:00 AM EST 2 IMPLANT SUPPORTED CROWN - PORCELAIN FUSED TO HIGH ANTUNEZ ALLOYS Routine 12/13/2024 12:00 AM EST 30 SURGICAL PLACEMENT OF IMPLANT BODY - ENDOSTEAL IMPLANT Routine 12/13/2024 12:00 AM EST 29 SURGICAL PLACEMENT OF IMPLANT BODY - ENDOSTEAL IMPLANT Routine 12/13/2024 12:00 AM EST 28 SURGICAL PLACEMENT OF IMPLANT BODY - ENDOSTEAL IMPLANT Routine 12/13/2024 12:00 AM EST 19 SURGICAL PLACEMENT OF IMPLANT BODY - ENDOSTEAL IMPLANT Routine 12/13/2024 12:00 AM EST 20 SURGICAL PLACEMENT OF IMPLANT BODY - ENDOSTEAL IMPLANT Routine 12/13/2024 12:00 AM EST 14 SURGICAL PLACEMENT OF IMPLANT BODY - ENDOSTEAL IMPLANT Routine 12/13/2024 12:00 AM EST 12 SURGICAL PLACEMENT OF IMPLANT BODY - ENDOSTEAL IMPLANT Routine 12/13/2024 12:00 AM EST 13 SURGICAL PLACEMENT OF IMPLANT BODY - ENDOSTEAL IMPLANT Routine 12/13/2024 12:00 AM EST 5 SURGICAL PLACEMENT OF IMPLANT BODY - ENDOSTEAL IMPLANT Routine 12/13/2024 12:00 AM EST 4 SURGICAL PLACEMENT OF IMPLANT BODY - ENDOSTEAL IMPLANT Routine 12/13/2024 12:00 AM EST 2 SURGICAL PLACEMENT OF IMPLANT BODY - ENDOSTEAL IMPLANT Routine 12/13/2024 12:00 AM EST 8 CROWN - PORCELAIN/CERAMIC Routine 12/13/2024 12:00 AM EST 9 CROWN - PORCELAIN/CERAMIC Routine 12/13/2024 12:00 AM EST 18 O AMALGAM FILLING Routine 12/13/2024 12:00 AM EST 1 DO AMALGAM FILLING Routine 12/13/2024 12:00 AM EST 31 DO AMALGAM FILLING Routine 12/13/2024 12:00 AM EST 15 EXTRACTION Routine 12/13/2024 12:00 AM EST LIPID PANEL WITH REFLEX TO DIRECT LDL Routine 05/09/2024 10:03 AM EDT Pure hypercholesterolemia BI MAMMOGRAM SCREENING TOMOSYNTHESIS BILATERAL Routine 02/20/2024 9:50 AM EDT PROPHYLAXIS - ADULT Routine 02/05/2021 12:00 AM EDT from Last 3 Months or Most Recently Relevant to Health Maintenance Results * (ABNORMAL) Lipid Panel with Reflex to Direct LDL (05/09/2024 10:03 AM EDT) Triglycerides 93 <150 mg/dL [facility] Comment:Desirable Triglyceri de: less than 150 mg/dLBorderline High Triglyceride 150-199 mg/dLHigh Triglyceride: 200-499 mg/dLVery High Triglyceride: greater than or equal to 5OO mg/dL Cholesterol 222(H) <200 mg/dL [facility] Comment:Desirable Cholestero l: less than 200 mg/dLBorderline High Cholesterol: 200-239 mg/dLHigh Cholesterol: greater than 239 mg/dL LDL Cholesterol Calculated 139(H) <100 mg/dL [facility] Comment:Desirable LDL: less than 100 mg/dLNear Optimal/Above Optimal LDL: 110- 129 mg/dLBorderline High LDL: 130-159 mg/dLHigh LDL: 160-189 mg/dLVery High LDL: greater than or equal to 190 mg/dL HDL Cholesterol 65 >40 mg/dL [facility] Comment:Desirable HDL: great er than 40 mg/dL Note: This HDL assay may give artificially low results in patients with liver disease. Blood 05/09/2024 10:0 3 AM EDT 05/09/2024 11:15 AM EDT us Kourtney Cano MD LAB BLOOD ORDERABLES Fin al Result [facility] [address] [place] [address] [phone] * BI Mammogram Screening Tomosynthesis Bilateral (02/20/2024 9:50 AM EDT) Anatomical Region Laterality Modality Breast Bilateral Mammography 02/20/2024 9:50 AM EDT Narrative 03/18/2024 6:16 AM EDT ? [facility] ? [address] ?[place] [address] ? Mammography Report ? Signed ? Patient: Melendez Christopher,Sujata ?MR#: M ?? [id number] ? : 1950 ?Acct:[id number] ? Age/Sex: 74 / F ?ADM Date: 02/20/24 ? Loc: HO.MAMMO ? Attending Dr: Kourtney Cano MD ? Ordering Physician: Kourtney Cano MD ?Results: 1Ne ?? gative ? Date of Service: 02/20/24 ?Follow Up: 1 Year From Orig ?? inal Mammogram ? Procedure(s): MM tomosynthesis screening BI ?? Accession Number(s): [id number] ? cc: Kourtney Cano MD ? EXAMINATION: ?? MM SCREENING DIGITAL BREAST TOMOSYNTHESIS, BILATERAL ? CLINICAL INFORMATION: ? Screening. Asymptomatic. ? COMPARISON: ?? Mammography: This study is compared with prior exams dating back to ?? 2020. ? TECHNIQUE: ?? Digital breast tomosynthesis is performed in both the craniocaudal and ?? mediolateral oblique views along with computer-aided detection (CAD). ?? Synthesized 2D images are generated from the tomosynthesis. ? FINDINGS: ?? There are scattered areas of fibroglandular density (ACR BI-RADS breast ?? composition Category b). ? There are no significant masses, abnormal calcifications, or other ?? abnormalities. ? MM/MM tomosynthesis screening BI ?? IMPRESSION: ?? No mammographic evidence of malignancy. ? ASSESSMENT: ? BI-RADS BI-RADS 1 - Negative ? RECOMMENDATION: ?? Routine annual mammography screening. ? 1 year F/U ? This examination should not preclude the clinical evaluation of a ?? suspicious palpable abnormality. ? This patient's information was entered into a reminder system with a ?? target due date for their next mammogram. ? Dictated By: ?Katharine Urban MD ? Signed By: ?<Electronically signed by Katharine Urban MD in OV> ? 03/18/ 0612 ? DD/ 0950 ? TD/TT: ? Public Speaking Instructor: ? Procedure Note Donarsalanter, Image - 03/18/2024 [facility] [address] [place] [address] Mammography Report Signed Patient: Aria Andrea#: M [id number] : 1Acct:[id number] Age/Sex: 74 / FADM Date: 02/20/24 Loc: [facility] Attending Dr: Kourtney Cano MD Ordering Physician: Kourtney Cano MDResults: 1Ne gative Date of Service: 02/20/24Follow Up: 1 Year From Orig ina Mammogram Procedure(s): MM tomosynthesis screening BI Accession Number(s): [id number] cc: Kourtney Cano MD EXAMINATION: MM SCREENING DIGITAL BREAST TOMOSYNTHESIS, BILATERAL CLINICAL INFORMATION: Screening. Asymptomatic. COMPARISON: Mammography: This study is compared with prior exams dating back to 2020. TECHNIQUE: Digital breast tomosynthesis is performed in both the craniocaudal and mediolateral oblique views along with computer-aided detection (CAD). Synthesized 2D images are generated from the tomosynthesis. FINDINGS: There are scattered areas of fibroglandular density (ACR BI-RADS breast composition Category b). There are no significant masses, abnormal calcifications, or other abnormalities. MM/MM tomosynthesis screening BI IMPRESSION: No mammographic evidence of malignancy. ASSESSMENT: BI-RADS BI-RADS 1 - Negative RECOMMENDATION: Routine annual mammography screening. 1 year F/U This examination should not preclude the clinical evaluation of a suspicious palpable abnormality. This patient's information was entered into a reminder system with a target due date for their next mammogram. Dictated By: Katharine Urban MD Signed By: <Electronically signed by Katharine Urban MD in OV> 03/18/24 0612 DD/ 0950 TD/TT: Public Speaking Instructor: Kourtney Cano MD IMG BI PROCEDURES Final Result from Last 3 Months or Most Recently Relevant to Health Maintenance Insurance [facility] - DQ ELODIA CRANE O SNP Care Teams Jig Borer Relationship Specialty Start Date End Date Kourtney Cano MD [address] [place] [id number] PCP - General Family Medicine 02/11/21
--- OUTSIDE RECORDS SUMMARY | 2025-02-19 09:07 | XMS_ITS | Encounter Summary ---
Author Organization [employer] Address [address] [facility] [address] [place] [address] Care Team Providers Care Visual Merchandising Associate Name Role Phone Kourtney Cano MD Primary Care Provider + Reason for Visit * Reason Onset Date Comments Med Refill 04/12/2024 Encounter Details Date Type Department Care Team ([facility] st Contact Info) Description 04/12/2024 Telephone [facility] [address] [place] [address] Kourtney Cano MD [address] [place], [place] [phone] Med Refill Social History Tobacco Use Types Packs/Day Years [...] Patient Health Questionnaire-2 Score 0 01/27/2024 Comments Unknown Sex and Gender Information Value Date Recorded Sex Assigned at Female 08/23/2022 10:37 AM EDT Legal Sex Female 10:37 AM EDT Gender Identity Female 08/23/2022 10:37 AM EDT Sexual Orientation Straight 08/23/2022 10 :37 AM EDT documented as of this encounter Miscellaneous Notes * Telephone Encounter - Carmella Longoria LPN - 04/12/2024 2:55 PM EDT Medication pended to PCP. * Telephone Encounter - Gregory Montalvo - 04/12/2024 2:46 PM EDT TC from pt requesting medication refill. Medications needing refill : ammonium lactate (Amlactin) 12 % cream To be sent to: [id number] - [place], [place] - [address] documented in this encounter Plan of Treatment Upcoming Encounters Date Type Department Care Team (Late st Contact Info) Description 04/10/2025 9:00 AM EDT Office Visit [facility] [address] [place] [address] Kourtney Cano MD [address] [place] [address] documented as of this encounter Visit Diagnoses Not on filedocumented in this encounter Care Teams Visual Merchandising Associate Relationship Specialty Start Date End Date Kourtney Cano MD [address] [place] [address] PCP - General Family Medicine 02/11/21 documented as of this encounter
--- OUTSIDE RECORDS SUMMARY | 2025-02-19 09:07 | XMS_ITS | Encounter Summary ---
Author Organization [employer] Address [address] [facility] [address] [place] [address] Care Team Providers Care Financial Sales Professional Name Role Phone Kourtney Cano MD Primary Care Provider + Encounter Details Date Type Department Care Team (Late st Contact Info) Description 08/03/2023 Abstract [facility] [address], [place] [phone] Kourtney Cano MD [address] [place], [place] [phone] Social History Tobacco Use Types Packs/Day Years Used Date Smoking Tobacco: Never Smokeless Tobacco: Never Alcohol Use Standard Drinks/Week Comments Never 0 (1 standard drink = 0.6 oz pur e alcohol) PHQ-2 Answer Date Recorded Patient Health Questionnaire-2 Score 0 12/16/2022 Housing Stability Answer Date Recorded What is your housing situation today? I have margarita ramirez 08/02/[address] you li ve. Do you have problems with any of the following? None of the above 08/02/2023 Food Insecurity Answer Date Recorded Within the past 12 months, y ou worried that your food would run out before you got money to buy more: Never True 08/02/2023 Within the past 12 months,th e food you bought just didn't last and you didn't have enough money to get more: Never True 07/2023 Transportation Answer Date Recorded In the past 12 months, has l ack of transportation kept you from medical appts, meetings, work or from getting things needed for daily living? Yes, it has kept me from medical appointments or getting medications. 08/02/2023 Utilities Answer Date Recorded In the past 12 months, has t he electric, gas, oil or water [employer] threatened to shut off services in your home? No 08/02/2023 Depression Answer Date Recorded Patient Health Questionnaire-2 Score 0 12/16/2022 Comments Unknown Sex and Gender Information Value [...] Description 04/10/2025 9:00 AM EDT Office Visit [facility] [address] [place] [address] [phone] Kourtney Cano MD [address] [place] [phone] documented as of this encounter Visit Diagnoses Not on filedocumented in this encounter Care Teams Financial Sales Professional Relationship Specialty Start Date End Date Kourtney Cano MD [address] [place] [phone] PCP - General Family Medicine 02/11/21 documented as of this encounter
[2025-02-19 11:42] LABS: Estimated Average Glucose 114 mg/dL; Hemoglobin A1C 137.1317 umol/L; Hemoglobin A1c % 5.6 % (<6.0); Total Hemoglobin (HGBA1C) 3665.7935 umol/L
[2025-02-19 11:58] LABS: Alanine Aminotransferase 16 U/L (0-31); Albumin Level 4.2 g/dL (3.5-5.0); Alkaline Phosphatase 90 U/L (39-117); Anion Gap 9 (12-20); Aspartate Amino Transferase 26 U/L (5-31); Bilirubin Total 0.5 mg/dL (0.0-1.0); Blood Urea Nitrogen 10 mg/dL (9-16); Calcium 9.3 mg/dL (8.4-10.2); Carbon Dioxide 29 mmol/L (22-29); Chloride 107 mmol/L (96-108); Cholesterol 148 mg/dL (<200); Estimated Glomerular Filt Rate > 60; Glucose Random 91 mg/dL (60-115); HDL Cholesterol 74 mg/dL (>40); LDL Cholesterol Calculated 63 mg/dL (<100); Potassium 3.6 mmol/L (3.3-5.1); Sodium 141 mmol/L (135-145); Total Protein 7.1 g/dL (6.5-8.0); Triglycerides 58 mg/dL (<150)
[2025-02-19 13:34] LABS: Reflex LDLD? No
== END 2025-02-19 08:42 | disposition home or self-care (01) ==
LOC: HO.HHCL 08:41
PROVIDERS: Visit Provider Internal Medicine
DX: E78.00 Pure hypercholesterolemia, unspecified (principal); R73.9 Hyperglycemia, unspecified
CPT/HCPCS: 36415; 80053; 80061; 83036

== ENCOUNTER 2025-04-24 08:21 | Outpatient (REF) | payer OTHER, SELFPAY ==
--- OUTSIDE RECORDS SUMMARY | 2025-04-24 08:24 | XMS_ITS | Encounter Summary ---
Author Organization [employer] Address [address] [facility] [address] [place] [address] Care Team Providers Care Metal Organ Pipe Maker Name Role Phone Kourtney Cano MD Primary Care Provider + Encounter Details Date Type Department Care Team (Latest Contact Info) Description 02/05/2021 Abstract [facility] Dental, Provider, DDS Social History [...] as of this encounter Plan of Treatment Not on file documented as of this encounter Visit Diagnoses Not on filedocumented in this encounter Care Teams Metal Organ Pipe Maker Relationship Specialty Start Date End Date Kourtney Cano MD [address] [place] [phone] PCP - General Family Medicine 02/11/21 documented as of this encounter
== END 2025-04-24 08:22 | disposition home or self-care (01) ==
LOC: HO.MAMMO 08:21
PROVIDERS: PCP Internal Medicine; Visit Provider Internal Medicine
DX: Z12.31 Encounter for screening mammogram for malignant neoplasm of breast (principal)
CPT/HCPCS: 77063; 77067

== ENCOUNTER → 2025-04-24 09:30 | Outpatient (BNV) | payer OTHER, SELFPAY | PROVIDERS: PCP Internal Medicine; Visit Provider Internal Medicine | DX: Z12.31 Encounter for screening mammogram for malignant neoplasm of breast (principal) | CPT/HCPCS: 77063; 77067 ==